=== PATIENT | female | born 2000 | race Caucasian/White ===

== ENCOUNTER 2020-07-20 13:53 | Emergency (ER) | payer SELFPAY ==
--- NOTE | 2020-07-20 14:11 | EDM.PDOC ---
ED HPI GENERAL MEDICAL PROBLEM - General Chief Complaint: MOP MAKER Problem Stated Complaint: 5 MONTHS /FALL Time Seen by Provider: 07/20/20 14:08 Source of Information: Reports: Patient History Limitations: Reports: No Limitations - History of Present Illness INITIAL COMMENTS - FREE TEXT/NARRATIVE: 20-year-old female presents with syncopal episode. She is A1, GA 16 weeks with no past medical history. She is moving here from [place] and does not have establish care in [place]. She was eating lunch at [facility] today and [facility], witnesses noted that her eyes rolled back and she syncopized, she fell sideways and hit the back of her head with LOC of 2 minutes. There was no witnessed tonic-clonic seizure activity. She denies p recipitating symptoms. She currently admits to headache localized to her right occiput and right adnexal pain. Patient denies fever, chills, palpitations, chest pain, shortness of breath, focal numbness or weakness, leakage of fluid, vaginal bleeding, contractions. She does not have an established MOP MAKER here. ROS: A 10-point review of systems, other than pertinent positives and negatives as stated per HPI, is otherwise negative Past medical history: No additional pertinent history Past Surgical history: No additional pertinent history Social history: No additional pertinent history Family history: No additional pertinent history PHYSICAL EXAM General: AOx4, GCS = 15, No distress HEENT: dry mucous membrane Neck: supple, no meningismus, no Kernig or Brudzinski Cardiac: S1S2 RRR Respiratory: CTAB, no crackles or rales, no wheezing Abdomen: Soft, nontender, no rebound or guarding, nondistended, no pulsatile mass. No [place] sign or Lutz Millan sign. Back: nontender Musculoskeletal: NVI distally, no deformity Neuro: No focal deficits, CN 2 - 12 WNL. abdominal Pain Score (Numeric/FACES): 5 - Related Data Allergies Allergy/AdvReac Type Severity Reaction Status Date / Time bee venom protein (honey bee) Allergy Swelling Verified 07/20/20 14:19 coconut Allergy Wheezing Verified 07/20/20 14:19 latex Allergy Rash Verified 07/20/20 14:28 Home Meds: Home Meds Pnv No.95/Ferrous Fum/Folic AC [ Multivitamin Tablet] 1 each PO DAILY 07/20/20 [History] ED ROS GENERAL - Review of Systems Review Of Systems: See Below (see dictation) ED EXAM, GI/ABD - Physical Exam Exam: See Below (see dictation) #1 Interpretation EKG Interpretation Comments: 71 bpm, NSR, normal QRS interval, no STEMI. EKG and rhythm strip interpreted by me at 1425 Course - Vital Signs Last Recorded V/S: Last Vital Signs Temp 97.1 F 07/20/20 14:14 Pulse 88 07/20/20 14:14 Resp 18 07/20/20 14:14 BP 137/66 07/20/20 14:14 Pulse Ox 97 07/20/20 14:14 - Orders/Labs/Meds Orders: Active Orders 24 hr Category Date Time Status Cardiac Monitoring [RC] . DIRECTED Care 07/20/20 14:20 Active EKG 12 Lead [EKG Documentation Completion] [RC] STAT Care 07/20/20 14:19 Active Pulse Oximetry [RC] ASDIRECTED Care 07/20/20 14:20 Active Sodium Chloride 0.9% [Normal Saline] 1,000 ml Med 07/20/20 14:30 Active IV .BOLUS Medication Orders Sodium Chloride (Normal Saline) 1,000 mls @ 999 mls/hr IV .BOLUS GROVER Last Admin: 07/20/20 14:35 Dose: 999 mls/hr Documented by: URBANO Labs: Laboratory Tests 07/20/20 07/20/20 07/20/20 Range/Units 14:20 14:20 14:20 WBC 9.93 (4.0-11.0) K/uL RBC 4.59 (4.30-5.90) M/uL Hgb 11.3 L (12.0-16.0) g/dL Hct 35.9 L (36.0-46.0) % MCV 78.2 L (80.0-98.0) fL MCH 24.6 L (27.0-32.0) pg MCHC 31.5 (31.0-37.0) g/dL RDW Std Deviation 43.0 (28.0-62.0) fl RDW Coeff of Edith 15 (11.0-15.0) % Plt Count 242 (150-400) K/uL MPV 10.20 (7.40-12.00) fL Neut % (Auto) 74.6 (48.0-80.0) % Lymph % (Auto) 19.0 (16.0-40.0) % [place] % (Auto) 5.5 (0.0-15.0) % Eos % (Auto) 0.8 (0.0-7.0) % Baso % (Auto) 0.1 (0.0-1.5) % Neut # (Auto) 7.4 H (1.4-5.7) K/uL Lymph # (Auto) 1.9 (0.6-2.4) K/uL [place] # (Auto) 0.6 (0.0-0.8) K/uL Eos # (Auto) 0.1 (0.0-0.7) K/uL Baso # (Auto) 0.0 (0.0-0.1) K/uL Nucleated RBC % 0.0 /100WBC Nucleated RBCs # 0 K/uL INR 0.99 Sodium 136 (136-145) mmol/L Potassium 4.1 (3.5-5.1) mmol/L Chloride 102 (98-107) mmol/L Carbon Dioxide 27.3 (21.0-32.0) mmol/L BUN 8 (7.0-18.0) mg/dL Creatinine 0.5 L (0.6-1.0) mg/dL Est Cr Clr Drug Dosing 145.99 mL/min Estimated GFR (MDRD) > 60.0 ml/min Glucose 83 (74-106) mg/dL Calcium 9.3 (8.5-10.1) mg/dL Total Bilirubin 0.2 (0.2-1.0) mg/dL AST 18 (15-37) IU/L ALT 23 (14-63) IU/L Alkaline Phosphatase 94 (46-116) U/L Troponin I (0.000-0.056) ng/mL Total Protein 7.4 (6.4-8.2) g/dL Albumin 3.1 L (3.4-5.0) g/dL Globulin 4.3 H (2.6-4.0) g/dL Albumin/Globulin Ratio 0.7 L (0.9-1.6) HCG, Quant 08350.0 mIU/mL Urine Color Urine Appearance Urine pH (5.0-8.0) Ur Specific [place] (1.001-1.035) Urine Protein (NEGATIVE) mg/dL Urine Glucose (UA) (NEGATIVE) mg/dL Urine Ketones (NEGATIVE) mg/dL Urine Occult Blood (NEGATIVE) Urine Nitrite (NEGATIVE) Urine Bilirubin (NEGATIVE) Urine Urobilinogen (<2.0) EU/dL Ur Leukocyte Esterase (NEGATIVE) Urine RBC (0-2/HPF) Urine WBC (0-5/HPF) Ur Epithelial Cells (NONE-FEW) Amorphous Sediment (NEGATIVE) Urine Bacteria (NEGATIVE) Blood Type 07/20/20 07/20/20 07/20/20 Range/Units 14:20 14:20 14:38 WBC (4.0-11.0) K/uL RBC (4.30-5.90) M/uL Hgb (12.0-16.0) g/dL Hct (36.0-46.0) % MCV (80.0-98.0) fL MCH (27.0-32.0) pg MCHC (31.0-37.0) g/dL RDW Std Deviation (28.0-62.0) fl RDW Coeff of Edith (11.0-15.0) % Plt Count (150-400) K/uL MPV (7.40-12.00) fL Neut % (Auto) (48.0-80.0) % Lymph % (Auto) (16.0-40.0) % [place] % (Auto) (0.0-15.0) % Eos % (Auto) (0.0-7.0) % Baso % (Auto) (0.0-1.5) % Neut # (Auto) (1.4-5.7) K/uL Lymph # (Auto) (0.6-2.4) K/uL [place] # (Auto) (0.0-0.8) K/uL Eos # (Auto) (0.0-0.7) K/uL Baso # (Auto) (0.0-0.1) K/uL Nucleated RBC % /100WBC Nucleated RBCs # K/uL INR Sodium (136-145) mmol/L Potassium (3.5-5.1) mmol/L Chloride (98-107) mmol/L Carbon Dioxide (21.0-32.0) mmol/L BUN (7.0-18.0) mg/dL Creatinine (0.6-1.0) mg/dL Est Cr Clr Drug Dosing mL/min Estimated GFR (MDRD) ml/min Glucose (74-106) mg/dL Calcium (8.5-10.1) mg/dL Total Bilirubin (0.2-1.0) mg/dL AST (15-37) IU/L ALT (14-63) IU/L Alkaline Phosphatase (46-116) U/L Troponin I < 0.050 (0.000-0.056) ng/mL Total Protein (6.4-8.2) g/dL Albumin (3.4-5.0) g/dL Globulin (2.6-4.0) g/dL Albumin/Globulin Ratio (0.9-1.6) HCG, Quant mIU/mL Urine Color YELLOW Urine Appearance CLOUDY Urine pH 7.0 (5.0-8.0) Ur Specific [place] 1.020 (1.001-1.035) Urine Protein NEGATIVE (NEGATIVE) mg/dL Urine Glucose (UA) NEGATIVE (NEGATIVE) mg/dL Urine Ketones NEGATIVE (NEGATIVE) mg/dL Urine Occult Blood NEGATIVE (NEGATIVE) Urine Nitrite NEGATIVE (NEGATIVE) Urine Bilirubin NEGATIVE (NEGATIVE) Urine Urobilinogen 0.2 (<2.0) EU/dL Ur Leukocyte Esterase TRACE H (NEGATIVE) Urine RBC 0-2 (0-2/HPF) Urine WBC 1-2 (0-5/HPF) Ur Epithelial Cells FEW (NONE-FEW) Amorphous Sediment MODERATE (NEGATIVE) Urine Bacteria FEW (NEGATIVE) Blood Type O POSITIVE Meds: Medications Generic Name Dose Route Start Last Admin Trade Name Freq PRN Reason Stop Dose Admin Sodium Chloride 1,000 mls @ 999 mls/hr 07/20/20 14:30 07/20/20 14:35 Normal Saline IV 999 mls/hr .BOLUS GROVER Administration Discontinued Medications Generic Name Dose Route Start Last Admin Trade Name Justen PRN Reason Stop Dose Admin Acetaminophen 650 mg 07/20/20 14:23 07/20/20 14:34 Tylenol PO 07/20/20 14:24 650 mg NOW ONE Administration - Re-Assessments/Exams Free Text/Narrative Re-Assessment/Exam: 07/20/20 15:35 After IV fluids and prolonged observation in the ER, she is currently stable for discharge. I performed a repeat exam and did not appreciate new abnormal findings. Patient exhibits normal vital signs and has a normal gait on road test. I advised the patient to return to the ER for reevaluation if symptoms worsened, including fever, worsening pain, or any other worrisome symptoms. I instructed the patient to follow up with their PCP within 2-3 days. MEDICAL DECISION MAKING: I reviewed the patients past medical records, lab and radiographic findings. I discussed the case with the patient. My differential diagnosis included: Electrolyte abnormality, vasovagal syncope, ICH. Her CT head did not reveal any ICH/fracture given her history of fall from her syncope. Her OB ultrasound did not reveal any signs of abruption or hematoma, heart tones was within normal limits. Her EKG was unremarkable for arrhythmia. Her troponin, electrolytes were unremarkable. Patient has a [place] syncope score of -3, considered low risk, with a 0.4% risk of 30-day serious adverse event. I suspect she is stable for outpatient follow up with OBGYN. 07/20/20 16:56 Departure - Departure Time of Disposition: 16:30 Disposition: Home, Self-Care 01 Condition: Good Clinical Impression: Syncope, Head contusion, Threatened miscarriage - Discharge Information *PRESCRIPTION DRUG MONITORING PROGRAM REVIEWED*: Not Applicable *COPY OF PRESCRIPTION DRUG MONITORING REPORT IN PATIENT ANA: Not Applicable Instructions: Facial or Scalp Contusion, Contusion, [id number], Threatened Miscarriage, [id number], Syncope Referrals: PCP,None [Primary Care Provider] - Forms: ED Department Discharge Additional Instructions: The need for follow-up, as well as the timing and circumstances, are variable depending upon the specifics of your emergency department visit. If you don't have a primary care physician on staff, we will provide you with a referral. We always advise you to contact your personal physician following an emergency department visit to inform them of the circumstance of the visit and for follow-up with them and/or the need for any referrals to a consulting specialist. The emergency department will also refer you to a specialist when appropriate. This referral assures that you have the opportunity for follow-up care with a specialist. All of these measure are taken in an effort to provide you with optimal care, which includes your follow-up. Under all circumstances we always encourage you to contact your private physician who remains a resource for coordinating your care. When calling for follow-up care, please make the office aware that this follow-up is from your recent emergency room visit. If for any reason you are refused follow-up, please contact the [facility] Emergency Department at and asked to speak to the emergency department charge nurse. If you do not have a primary care doctor, please follow up with the clinics below within 3-5 days. MOP MAKER clinics [facility] [address] [place] [id number] [facility] [address] [place] [id number] Sepsis Event Note (ED) - Focused Exam Vital Signs: Vital Signs Temp Pulse Resp BP Pulse Ox 07/20/20 14:14 97.1 F 88 18 137/66 97 - My Orders Last 24 Hours: My Active Orders 07/20/20 14:19 EKG 12 Lead [EKG Documentation Completion] [RC] STAT 07/20/20 14:20 Cardiac Monitoring [RC] . DIRECTED Pulse Oximetry [RC] ASDIRECTED 07/20/20 14:30 Sodium Chloride 0.9% [Normal Saline] 1,000 ml IV .BOLUS - Assessment/Plan Last 24 Hours: My Active Orders 07/20/20 14:19 EKG 12 Lead [EKG Documentation Completion] [RC] STAT 07/20/20 14:20 Cardiac Monitoring [RC] . DIRECTED Pulse Oximetry [RC] ASDIRECTED 07/20/20 14:30 Sodium Chloride 0.9% [Normal Saline] 1,000 ml IV .BOLUS
[2020-07-20] MEDS ORDERED: Acetaminophen 325 MG Tab PO ONE (14:23)
[2020-07-20] MEDS ORDERED: Sodium Chloride 0.9% 1,000 ML IV SCH (14:30)
[2020-07-20 15:24] LABS: BLOOD UREA NITROGEN,BUN 8 mg/dL (7.0-18.0); CARBON DIOXIDE,CO2 27.3 mmol/L (21.0-32.0); CHLORIDE,CL 102 mmol/L (98-107); GLUCOSE RANDOM 83 mg/dL (74-106); POTASSIUM,K 4.1 mmol/L (3.5-5.1); SODIUM,NA 136 mmol/L (136-145)
--- NOTE | 2020-07-20 15:54 | CT ---
INDICATION: Fall TECHNIQUE: CT head without contrast. COMPARISON: None FINDINGS: CSF spaces: Within normal limits for age. Brain parenchyma: The holman-white differentiation is normal. No sign of mass, hemorrhage, or midline shift. Skull base and calvarium: The visualized paranasal sinuses and mastoid air cells demonstrate no acute or significant findings. The visualized orbits are grossly unremarkable. No skull fractures. IMPRESSION: Unremarkable noncontrast head CT. Please note that all CT scans at this facility use dose modulation, iterative reconstruction, and/or weight-based dosing when appropriate to reduce radiation dose to as low as reasonably achievable. Dictated by Saeed Mcguire MD @ Jul 20 2020 3:53PM Signed by Dr. Saeed Mcguire @ Jul 20 2020 3:53PM
--- NOTE | 2020-07-20 16:37 | US ---
INDICATION: . Fall. Five bili confirmation. TECHNIQUE: Ultrasound OB pelvis transabdominal. Real-time holman-scale imaging of the fetus was performed as well as color Doppler and spectral Doppler analysis of the umbilical artery. COMPARISON: None. FINDINGS: Sonographic imaging demonstrates a single living intrauterine gestation. Fetus demonstrates a regular cardiac rate of 145 beats per minute. Fetus has a breech orientation. The placenta lies posterior without evidence of placenta previa. Amniotic fluid volume appears normal. Biometry: Biparietal diameter: 3.0 cm, 15 weeks 5 days. Head circumference: 12.7 cm, 16 weeks 4 days. Abdominal circumference: 11.7 cm, 17 weeks 4 days. Femoral length: 2.1 cm, 16 weeks 3 days. The composite ultrasound gestational age is calculated at 16 weeks 4 days with an estimated sonographic due date of 09/02/2020. The weight is estimated at 172 grams, the 92nd percentile. IMPRESSION: Single viable intrauterine with an estimated ultrasound age of 16 weeks 4 days. No hemorrhage or other abnormality evident. Dictated by Mason Cassidy MD @ Jul 20 2020 4:30PM Signed by Dr. Mason Cassidy @ Jul 20 2020 4:37PM
== END 2020-07-20 17:09 | disposition home or self-care (01) ==
LOC: MW.ED 13:53
DX: O20.0 Threatened abortion (principal); O9A.212 Injury, poisoning and certain other consequences of external causes complicating pregnancy, second trimester; S00.93XA Contusion of unspecified part of head, initial encounter; Z91.030 Bee allergy status; Z91.040 Latex allergy status; Z91.018 Allergy to other foods; Z3A.16 16 weeks gestation of pregnancy; W01.10XA Fall on same level from slipping, tripping and stumbling with subsequent striking against unspecified object, initial encounter
CPT/HCPCS: 36415; 70450; 76815; 80053; 81001; 84484; 84702; 85025; 85610; 86900; 86901; 93005; 99284; A9270; J7040; 93010